=== PATIENT | male | born 1940 | race Asian ===

== ENCOUNTER → 2017-01-16 | Outpatient (CLI) | payer MEDICARE, OTHER ==
[~2017-01-16] VITALS: Ht 160 cm; Wt 86.0 kg
[~2017-01-16] MED LIST: ASPI81 PO; ATOR20TA86 PO; CALC25 PO; CETI-260 PO; DOXA2TAB PO; FERR-89 PO; FURO80 PO; KDUR10 PO; METO25 PO; NIFE-4 PO; SEVEC800 PO; SODI650T PO; VITAD1000 PO
[2017-01-16 13:41] VITALS: BP 150/61
== END | disposition home or self-care (01) ==
LOC: SRCNTR 13:21
PROVIDERS: ATTEND Internal Medicine
DX: J44.9 Chronic obstructive pulmonary disease, unspecified (principal); I50.9 Heart failure, unspecified; I25.10 Atherosclerotic heart disease of native coronary artery without angina pectoris; N18.6 End stage renal disease; I48.91 Unspecified atrial fibrillation; Z87.891 Personal history of nicotine dependence; Z98.61 Coronary angioplasty status
CPT/HCPCS: G0463

== ENCOUNTER → 2017-01-23 | Outpatient (CLI) | payer MEDICARE, OTHER ==
[~2017-01-23] MED LIST changes: -CALC25 PO; -KDUR10 PO
== END | disposition home or self-care (01) ==
LOC: RESP 09:43
PROVIDERS: ATTEND Internal Medicine
DX: J44.9 Chronic obstructive pulmonary disease, unspecified (principal)
CPT/HCPCS: 94010; 94726; 94727; 94729

== ENCOUNTER → 2017-04-17 | Outpatient (CLI) | payer MEDICARE, OTHER ==
[~2017-04-17] VITALS: Ht 160 cm; Wt 86.5 kg
[2017-04-17 13:14] VITALS: BP 112/65
== END | disposition home or self-care (01) ==
LOC: SRCNTR 13:05
PROVIDERS: ATTEND Internal Medicine
DX: J44.9 Chronic obstructive pulmonary disease, unspecified (principal); I25.10 Atherosclerotic heart disease of native coronary artery without angina pectoris; I50.9 Heart failure, unspecified; N18.9 Chronic kidney disease, unspecified; I48.91 Unspecified atrial fibrillation; Z87.891 Personal history of nicotine dependence
CPT/HCPCS: G0463

== ENCOUNTER → 2017-05-22 | Outpatient (CLI) | payer MEDICARE, OTHER ==
[~2017-05-22] VITALS: Ht 160 cm; Wt 91.0 kg
[~2017-05-22] MED LIST changes: +CALC25 PO; +KDUR10 PO; +METO50 PO
[2017-05-22 13:00] VITALS: BP 112/58
== END | disposition home or self-care (01) ==
LOC: SRCNTR 12:43
PROVIDERS: ATTEND Internal Medicine
DX: J44.9 Chronic obstructive pulmonary disease, unspecified (principal); I50.9 Heart failure, unspecified; I25.10 Atherosclerotic heart disease of native coronary artery without angina pectoris; N18.9 Chronic kidney disease, unspecified; I48.91 Unspecified atrial fibrillation; Z98.61 Coronary angioplasty status; Z87.891 Personal history of nicotine dependence
CPT/HCPCS: G0463

== ENCOUNTER → 2018-01-22 | Outpatient (CLI) | payer MEDICARE, OTHER ==
[~2018-01-22] MED LIST changes: -CALC25 PO; -CETI-260 PO; +CETI-290 PO; -FERR-89 PO; -FURO80 PO; -KDUR10 PO; -METO25 PO; -NIFE-4 PO; -SODI650T PO
== END | disposition home or self-care (01) ==
LOC: RADPV 11:40
PROVIDERS: ATTEND Family Medicine
DX: J98.4 Other disorders of lung (principal)
CPT/HCPCS: 71046